=== PATIENT | male | born 1990 | race Two or more races ===

== ENCOUNTER 2021-01-02 05:46 | Inpatient (IN) | payer MEDICAID, OTHER ==
[~2021-01-02] VITALS: Ht 182.9 cm; Wt 115.7 kg
[~2021-01-02 05:46] MED LIST: BENZ1TAB10 PO; DIVA-112 PO; HALO5TAB2 PO; QUET200T PO
[2021-01-02] MEDS ORDERED: ARIP2 PO (06:08)
[2021-01-02] MEDS ORDERED: TRAZ-252 PO (06:08)
[2021-01-02] MEDS ORDERED: MIRT-89 PO (06:08)
[2021-01-02 06:48] LABS: BASOPHILS % (AUTO) 0.3 % (0.0-2.0); EOSINOPHILS % (AUTO) 1.3 % (1.0-6.0); HEMOGLOBIN 14.7 g/dL (13.5-17.5); LYMPHOCYTES # (AUTO) 3.2 K/uL (1.0-4.8); MEAN CORPUSCULAR HGB CONC 33.5 G/dL (31.0-37.0); MEAN CORPUSCULAR VOLUME 90 fL (80-100); MONOCYTES # (AUTO) 0.9 K/uL (0.1-1.0); MONOCYTES % (AUTO) 9.2 % (2.0-9.0); NEUTROPHILS # (AUTO) 5.4 K/uL (1.8-7.7); NEUTROPHILS % (AUTO) 56.2 % (40.0-70.0); PLATELET COUNT (AUTO) 287 K/uL (150-450); RED BLOOD CELL COUNT(AUTO) 4.91 MIL/uL (4.50-5.90); RED CELL DISTRIBUTION WIDTH 13.9 % (11.5-14.5)
[2021-01-02 06:52] LABS: ANION GAP 14 mmol/L (8-16); CALCIUM, TOTAL 9.2 mg/dL (8.8-10.5); CARBON DIOXIDE 23 mmol/L (22-29); CHLORIDE 106 mmol/L (98-107); CREATININE 1.33 mg/dL (0.60-1.30); GLOMERULAR FILTR. RATE CALC > 60 mL/min (>60); GLUCOSE,RANDOM 151 mg/dL (70-110); POTASSIUM 3.4 mmol/L (3.5-5.1); SODIUM SERUM 143 mmol/L (136-145); UREA NITROGEN, BLOOD 15 mg/dL (7-18)
[2021-01-02 06:59] LABS: ALANINE AMINOTRANSFERASE 46 U/L (12-78); ALBUMIN 4.2 g/dL (3.4-5.0); ALKALINE PHOSPHATASE 66 U/L (46-116); ASPARTATE AMINOTRANSFERASE 39 U/L (15-37); BILIRUBIN,TOTAL 0.8 mg/dL (0.1-1.0); TOTAL PROTEIN, SERUM 8.4 g/dL (6.4-8.2)
[2021-01-02] MEDS ORDERED: HALOPERIDOL 5 MG TABLET PO ONE (07:00)
[2021-01-02] MEDS ORDERED: DiphenhydrAMINE HCL 50 MG CAPSULE PO ONE (07:00)
[2021-01-02] MEDS ORDERED: LORazepam 2 MG TABLET PO ONE (07:00)
[2021-01-02] MEDS ORDERED: DiphenhydrAMINE HCL 50 MG/ML VIAL ONE (07:04)
[2021-01-02] MEDS ORDERED: LORazepam 2 MG/ML VIAL ONE (07:04)
[2021-01-02] MEDS ORDERED: HALOPERIDOL LACTATE 5 MG/ML VIAL ONE (07:04)
[2021-01-02 07:07] LABS: COVID AG,FIA SOURCE NASOPHARYNGEAL
[2021-01-02 07:10] LABS: VALPROIC ACID 3 mcg/mL (50-100)
[2021-01-02] MEDS ORDERED: DiphenhydrAMINE HCL 50 MG/ML VIAL IM ONE (07:15)
[2021-01-02] MEDS ORDERED: LORazepam 2 MG/ML VIAL IM ONE (07:15)
[2021-01-02] MEDS ORDERED: HALOPERIDOL LACTATE 5 MG/ML VIAL IM ONE (07:15)
[2021-01-02 07:24] LABS: AMPHET/METH SCREEN,URINE NEGATIVE (NEGATIVE); BARBITURATE SCREEN, URINE NEGATIVE (NEGATIVE); BENZODIAZEPINES SCREEN,URINE NEGATIVE (NEGATIVE); CANNABINOID SCREEN,URINE POSITIVE (NEGATIVE); COCAINE SCREEN,URINE NEGATIVE (NEGATIVE); METHADONE SCREEN, URINE NEGATIVE (NEGATIVE); OPIATE SCREEN,URINE NEGATIVE (NEGATIVE)
[2021-01-02 07:27] LABS: PHENCYCLIDINE SCREEN,URINE NEGATIVE (NEGATIVE)
[2021-01-02] MEDS ORDERED: POTASSIUM CHLORIDE 20 MEQ ER TABLET PO ONE (07:45)
[2021-01-02 16:16] VITALS: BP 134/82
[2021-01-02] MEDS ORDERED: INFLUENZA VIRUS VACCINE QVS 2020-21 (6MO+)/PF 60 MCG/0.5 ML SYRINGE IM ONE (23:15)
[2021-01-02] MEDS ORDERED: PNEUMOCOCCAL VACCINE POLYVALENT 0.5 ML VIAL [PPSV23] IM ONE (23:15)
[2021-01-03] MEDS: LORazepam 2 MG TABLET PO PRN ×6 (00:01→23:43)
[2021-01-03 00:27] VITALS: BP 125/64
[2021-01-03] MEDS ORDERED: ACETAMINOPHEN 325 MG TABLET PO PRN (08:00)
[2021-01-03] MEDS ORDERED: MAGNESIUM HYDROXIDE SUSPENSION 30 ML UDCUP PO PRN (08:00)
[2021-01-03] MEDS ORDERED: PETROLATUM,WHITE 28 GM JELLY TP PRN (08:00)
[2021-01-03] MEDS ORDERED: DOCUSATE SODIUM 100 MG CAPSULE PO PRN (08:00)
[2021-01-03] MEDS ORDERED: LOPERAMIDE HCL 2 MG CAPSULE PO PRN (08:00)
[2021-01-03] MEDS ORDERED: POTASSIUM CHLORIDE 20 MEQ ER TABLET PO ONE (08:00)
[2021-01-03] MEDS ORDERED: MAG HYDROX/AL HYDROX/SIMETH ES 30 ML SUSPENSION UDCUP PO PRN (08:00)
[2021-01-03] MEDS ORDERED: CloNIDine HCL 0.1 MG TABLET PO PRN (08:00)
[2021-01-03] MEDS ORDERED: ONDANSETRON HCL 4 MG TABLET PO PRN (08:00)
[2021-01-03] MEDS ORDERED: ALBUTEROL SULFATE HFA 90 MCG/PUFF 8 GM INHALER IH PRN ×2 (08:00)
[2021-01-03 08:01] LABS: CHOL/HDL RATIO 4.4 (4.2-7.3); POTASSIUM 3.9 mmol/L (3.5-5.1)
[2021-01-03 09:21] VITALS: BP 112/78
[2021-01-03] MEDS: ARIPiprazole 5 MG TABLET PO SCH (13:42)
[2021-01-03] MEDS: NICOTINE 14 MG/24 HOUR PATCH TD PRN (13:50)
[2021-01-03 16:25] VITALS: BP 125/76
[2021-01-03] MEDS ORDERED: GuaiFENesin [SUGAR-FREE] 200 MG/10 ML SOLUTION UDCUP PO PRN (19:45)
[2021-01-04 00:59] VITALS: BP 136/89
[2021-01-04] MEDS: LORazepam 2 MG TABLET PO PRN ×2 (05:23→19:58)
[2021-01-04] MEDS: GuaiFENesin/D-METHORPHAN [SUGAR-FREE] 200-20MG/10 ML SYRUP UDCUP PO PRN ×3 (06:36→20:36)
[2021-01-04] MEDS: ARIPiprazole 5 MG TABLET PO SCH (09:00)
[2021-01-04 09:06] VITALS: BP 126/78
[2021-01-04] MEDS: NICOTINE 14 MG/24 HOUR PATCH TD PRN (09:46)
[2021-01-04 16:15] VITALS: BP 139/77
[2021-01-04] MEDS ORDERED: LORazepam 2 MG/ML VIAL ONE (16:53)
[2021-01-04] MEDS ORDERED: HALOPERIDOL LACTATE 5 MG/ML VIAL ONE (16:53)
[2021-01-04] MEDS ORDERED: DiphenhydrAMINE HCL 50 MG/ML VIAL ONE (16:53)
[2021-01-04] MEDS ORDERED: DiphenhydrAMINE HCL 50 MG/ML VIAL IM ONE (17:00)
[2021-01-04] MEDS ORDERED: LORazepam 2 MG/ML VIAL IM ONE (17:00)
[2021-01-04] MEDS ORDERED: HALOPERIDOL LACTATE 5 MG/ML VIAL IM ONE (17:00)
[2021-01-04] MEDS: HALOPERIDOL 5 MG TABLET PO PRN (19:58)
[2021-01-05 01:02] VITALS: BP 135/87
[2021-01-05] MEDS: LORazepam 2 MG TABLET PO PRN ×4 (02:13→18:04)
[2021-01-05] MEDS: GuaiFENesin/D-METHORPHAN [SUGAR-FREE] 200-20MG/10 ML SYRUP UDCUP PO PRN ×3 (02:19→18:05)
[2021-01-05] MEDS: ARIPiprazole 5 MG TABLET PO SCH (08:08)
[2021-01-05] MEDS: MULTIVITAMINS, THERAPEUTIC TABLET PO SCH (08:08)
[2021-01-05 08:15] LABS: HEMOGLOBIN A1C 7.6 % (3.8-5.6)
[2021-01-05] MEDS: NICOTINE 14 MG/24 HOUR PATCH TD PRN (09:47)
[2021-01-05 10:09] VITALS: BP 124/90
[2021-01-05] MEDS: MetFORMIN HCL 500 MG TABLET PO SCH (16:07)
[2021-01-05 16:37] VITALS: BP 129/73
[2021-01-05] MEDS: ZOLPIDEM TARTRATE 10 MG TABLET PO PRN (20:30)
[2021-01-06 01:42] VITALS: BP 128/68
[2021-01-06] MEDS: GuaiFENesin/D-METHORPHAN [SUGAR-FREE] 200-20MG/10 ML SYRUP UDCUP PO PRN ×2 (01:44→18:44)
[2021-01-06] MEDS: LORazepam 2 MG TABLET PO PRN ×4 (04:34→21:56)
[2021-01-06] MEDS: MetFORMIN HCL 500 MG TABLET PO SCH ×2 (06:38→18:06)
[2021-01-06 08:16] VITALS: BP 160/92
[2021-01-06] MEDS: MULTIVITAMINS, THERAPEUTIC TABLET PO SCH (08:42)
[2021-01-06] MEDS: ARIPiprazole 5 MG TABLET PO SCH (08:42)
[2021-01-06 17:00] LABS: GLUCOMETER DEV NAME(LOC) BV3N.; GLUCOSE,POINT OF CARE 109 MG/DL (70-110)
[2021-01-06] MEDS: NICOTINE 14 MG/24 HOUR PATCH TD PRN (18:38)
[2021-01-06] MEDS: HALOPERIDOL 5 MG TABLET PO PRN (21:56)
[2021-01-06] MEDS: ZOLPIDEM TARTRATE 10 MG TABLET PO PRN (22:27)
[2021-01-07 00:30] VITALS: BP 137/82
[2021-01-07] MEDS: LORazepam 2 MG TABLET PO PRN ×2 (02:19→08:51)
[2021-01-07] MEDS: GuaiFENesin/D-METHORPHAN [SUGAR-FREE] 200-20MG/10 ML SYRUP UDCUP PO PRN ×3 (02:29→14:39)
[2021-01-07] MEDS: MetFORMIN HCL 500 MG TABLET PO SCH ×2 (06:35→16:32)
[2021-01-07] MEDS: MULTIVITAMINS, THERAPEUTIC TABLET PO SCH (08:15)
[2021-01-07] MEDS: ARIPiprazole 5 MG TABLET PO SCH ×3 (08:15→08:53)
[2021-01-07 08:32] VITALS: BP 134/82
[2021-01-07] MEDS: NICOTINE 14 MG/24 HOUR PATCH TD PRN (10:06)
[2021-01-07] MEDS ORDERED: ClonazePAM 1 MG TABLET PO PRN (12:45)
[2021-01-07 16:26] VITALS: BP 132/88
[2021-01-08 00:31] VITALS: BP 137/76
[2021-01-08] MEDS: GuaiFENesin/D-METHORPHAN [SUGAR-FREE] 200-20MG/10 ML SYRUP UDCUP PO PRN (02:05)
[2021-01-08] MEDS: ARIPiprazole 5 MG TABLET PO SCH (06:51)
[2021-01-08] MEDS: MetFORMIN HCL 500 MG TABLET PO SCH ×2 (06:51→18:05)
[2021-01-08 08:24] VITALS: BP 149/79
[2021-01-08] MEDS: MULTIVITAMINS, THERAPEUTIC TABLET PO SCH (09:44)
[2021-01-08] MEDS: DIVALPROEX SODIUM 500 MG DR TABLET PO SCH ×3 (09:45→20:40)
[2021-01-08] MEDS: ClonazePAM 1 MG TABLET PO SCH ×2 (09:59→20:35)
[2021-01-08] MEDS ORDERED: LORazepam 2 MG/ML VIAL ONE (15:49)
[2021-01-08] MEDS ORDERED: HALOPERIDOL LACTATE 5 MG/ML VIAL ONE (15:50)
[2021-01-08] MEDS ORDERED: DiphenhydrAMINE HCL 50 MG/ML VIAL ONE (15:50)
[2021-01-08] MEDS ORDERED: DiphenhydrAMINE HCL 50 MG/ML VIAL IM ONE (16:00)
[2021-01-08] MEDS ORDERED: HALOPERIDOL LACTATE 5 MG/ML VIAL IM ONE (16:00)
[2021-01-08] MEDS ORDERED: LORazepam 2 MG/ML VIAL IM ONE (16:00)
[2021-01-08 17:03] VITALS: BP 125/80
[2021-01-09 03:46] VITALS: BP 123/71
[2021-01-09] MEDS: MetFORMIN HCL 500 MG TABLET PO SCH ×2 (06:50→16:52)
[2021-01-09] MEDS: ClonazePAM 1 MG TABLET PO SCH ×2 (08:30→20:30)
[2021-01-09] MEDS: ARIPiprazole 5 MG TABLET PO SCH ×3 (08:30→08:36)
[2021-01-09] MEDS: MULTIVITAMINS, THERAPEUTIC TABLET PO SCH (08:30)
[2021-01-09] MEDS: DIVALPROEX SODIUM 500 MG DR TABLET PO SCH ×2 (08:30→08:34)
[2021-01-09 08:57] VITALS: BP 125/75
[2021-01-09 16:28] VITALS: BP 140/88
[2021-01-10 03:04] VITALS: BP 132/72
[2021-01-10] MEDS: MetFORMIN HCL 500 MG TABLET PO SCH ×2 (06:36→16:36)
[2021-01-10] MEDS: MULTIVITAMINS, THERAPEUTIC TABLET PO SCH (08:28)
[2021-01-10] MEDS: DIVALPROEX SODIUM 500 MG DR TABLET PO SCH ×2 (08:33→20:48)
[2021-01-10] MEDS: ARIPiprazole 5 MG TABLET PO SCH (08:33)
[2021-01-10] MEDS: ClonazePAM 1 MG TABLET PO SCH ×2 (08:34→20:47)
[2021-01-10 08:53] VITALS: BP 123/72
[2021-01-10 16:23] VITALS: BP 123/74
[2021-01-11 05:29] VITALS: BP 110/70
[2021-01-11] MEDS: MetFORMIN HCL 500 MG TABLET PO SCH ×2 (06:24→16:19)
[2021-01-11] MEDS: DIVALPROEX SODIUM 500 MG DR TABLET PO SCH ×2 (09:00→20:35)
[2021-01-11] MEDS: ARIPiprazole 5 MG TABLET PO SCH (09:00)
[2021-01-11] MEDS: ClonazePAM 1 MG TABLET PO SCH ×2 (09:09→20:35)
[2021-01-11] MEDS: MULTIVITAMINS, THERAPEUTIC TABLET PO SCH (09:09)
[2021-01-11 09:24] VITALS: BP 110/67
[2021-01-11] MEDS: IBUPROFEN 400 MG TABLET PO PRN (13:23)
[2021-01-11 16:15] VITALS: BP 105/69
[2021-01-11 20:28] LABS: GLUCOMETER DEV NAME(LOC) BV3N.; GLUCOSE,POINT OF CARE 151 MG/DL (70-110)
[2021-01-12 04:57] VITALS: BP 112/72
[2021-01-12] MEDS: MetFORMIN HCL 500 MG TABLET PO SCH (06:22)
[2021-01-12] MEDS: MULTIVITAMINS, THERAPEUTIC TABLET PO SCH (08:04)
[2021-01-12] MEDS: ClonazePAM 1 MG TABLET PO SCH (08:04)
[2021-01-12] MEDS: DIVALPROEX SODIUM 500 MG DR TABLET PO SCH (08:04)
[2021-01-12] MEDS: ARIPiprazole 5 MG TABLET PO SCH (08:05)
[2021-01-12 08:46] VITALS: BP 108/63
[2021-01-12] MEDS: IBUPROFEN 400 MG TABLET PO PRN (09:53)
[2021-01-12 09:54] VITALS: BP 117/72
[2021-01-12] MEDS ORDERED: ARIP1064 IM ×2 (11:46→11:47)
[2021-01-12] MEDS ORDERED: METF-960 PO (14:34)
== END 2021-01-12 17:45 | disposition home or self-care (01) | DRG 750 ==
LOC: EMS 05:47 → B3A 12:07
DX: F25.0 Schizoaffective disorder, bipolar type (principal); Z20.822 Contact with and (suspected) exposure to COVID-19; R45.851 Suicidal ideations; N17.9 Acute kidney failure, unspecified; E87.6 Hypokalemia; J45.909 Unspecified asthma, uncomplicated; E66.9 Obesity, unspecified; R73.9 Hyperglycemia, unspecified; F15.90 Other stimulant use, unspecified, uncomplicated; F12.10 Cannabis abuse, uncomplicated; Z71.51 Drug abuse counseling and surveillance of drug abuser; Z78.1 Physical restraint status; Z68.34 Body mass index [BMI] 34.0-34.9, adult; Z59.0 Homelessness; Z91.048 Other nonmedicinal substance allergy status
CPT/HCPCS: 83036; 84132; 87426; 90686; 90732; 99291; G0480; J1200; J1630; J2060